=== PATIENT | female | born 1945 | race Caucasian/White ===

== ENCOUNTER → 2016-08-12 | Outpatient (CLI) | payer MEDICARE, MEDICAID ==
[~2016-08-12] MED LIST: ATENOLOL-CHLOR1 EACH PO; CARAFATE DPS1 GM PO; CELEXA DPS20 MG PO; DUONEB DPS3 ML IH; FLOVENT 110MCG12 GM IH; LEVAQUIN DPS250 MG PO; LEVOTHYROXINE112 MCG PO; NEURONTIN DPS300 MG PO; NORCO 5-325 TA1 EACH PO; PREDNISONE10 MG PO; PRILOSEC DPS20 MG PO; PROCHLORPERAZIN10 MG PO; SINEMET CR 50-1 EACH PO
== END | disposition home or self-care (01) ==
LOC: RAD.S 13:45
DX: R18.8 Other ascites (principal); R10.9 Unspecified abdominal pain; C23 Malignant neoplasm of gallbladder

== ENCOUNTER 2016-08-19 11:00 | Inpatient (IN) | payer MEDICARE ==
[~2016-08-19] VITALS: Ht 164.3 cm; Wt 127.0 kg
--- NOTE | 2016-08-20 11:08 | ER ---
ADMIT: 08/19/2016 RM/LOC: 520 [facility] MR#: [id number] 2620 [facility] [address] [place], [place] [id number] BRODY MAGDAELNO [address] [facility] [address] [place] [address] Emergency Room Report SEX: F AGE: 71 : 1945 DATE: 08/19/2016 CHIEF COMPLAINT: Weakness. HISTORY OF PRESENT ILLNESS: This is a 71-year-old white female coming over from [place] because she was found that she was getting weaker, failure to thrive, and they had worked her up a bit over there, and decided she need to come over here. She also had a D-dimer that was positive over there. 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 Cancer is unknown. Dr. Cuellar had seen her as well. The history is such as that she had been sent to [place] several weeks back for a large pleural effusion, which they tapped and then found the malignant cells. They also did an exploratory laparoscope, although, the first indication was gallbladder, but they could not remove the gallbladder, so there was a question of whether she has ovarian or gallbladder cancer. She had seen Dr. Cuellar and had, had started on chemo, but has not tolerated this well at all. PAST MEDICAL HISTORY: Significant disease is actually fairly extensive as she has a history of COPD; basal cell cancer; cholelithiasis; diabetes type 2 with polyneuropathy; history of enteritis, unknown etiology, continues to have diarrhea; Graves disease; chronic radiculopathy pain; Parkinson disease as well as history of thyrotoxicosis with diffuse goiter. MEDICATION: Refer to list. ALLERGIES: BUMEX, BENADRYL, AND LISINOPRIL, SHE HAS COUGH WITH THAT. FAMILY SOCIAL HISTORY: She lives with her family. She was a long-time smoker, but has quit for maybe 10 years or so. REVIEW OF SYSTEMS: GENERAL: Overall weakness. CARDIOVASCULAR: See history of present illness. GI: See history of present illness. : She has a history of supposedly bladder cancer, has been cystoscoped at 69 years, I do not know where that is at this time. Rest of review of systems essentially negative. PHYSICAL EXAMINATION: GENERAL: Generally weak, but responsive. VITAL SIGNS: Stable. She is afebrile. HEENT: Negative. RESPIRATORY: Breath sounds are distant. CARDIOVASCULAR: Regular rate and rhythm. ABDOMEN: Nontender. She has postop change noted. SKIN: Pallor. EXTREMITIES: She does move all. REGULATED PROGRAM MANAGER: She is somnolent and weak. Lethargic. Will wake up, will answer questions. I do not see any focal deficits at this time. ADMIT: 08/19/2016 RM/LOC: 520 [facility] MR#: [id number] [address] [place] [id number] BRODY MAGDALENO [address] [place] [address] Emergency Room Report SEX: F AGE: 71 : 1945 LABORATORY: We did do the sepsis workup on her. White count was 2.5 and hemoglobin is 9.3. Her urine was essentially clear. Her procalcitonin was negative. Her lactate was 0.6. Chemistries negative, though her potassium is slightly elevated at 5.7. Troponin is negative. INR is negative as well. Chest x-ray, she does have a pleural effusion on the right, which seems to be improved. Her creatinine though was elevated at 2 at [place] and here as well. DIAGNOSES: 1. Metastatic cancer, unknown etiology. 2. History of pleural effusion that has been cancerous cells found. 3. Weakness. 4. Renal insufficiency. 5. History of bladder cancer. 6. Chronic obstructive pulmonary disease by history. TREATMENT: At this time, she has an IV. We have not start on any antibiotics. I did speak with Dr. Ritchie. She will need to be admitted. I also spoke with Dr. Cuellar as well. CONDITION ON DISCHARGE: Serious but stable at this time. Rigo Rao MD/ min JOB #: [id number] CC: Rigo Ritchie MD, Attending Physician Rigo Ritchie MD, Family Physician
--- NOTE | 2016-08-20 16:12 | HP ---
ADMIT: 08/19/2016 RM/LOC: 520 [facility] MR#: [id number] [address] [address] VANIA MAGDALENO [address] [facility] [address] [place] [address] History and Physical SEX: F AGE: 71 : 1945 DATE OF SERVICE: CHIEF COMPLAINT: Shortness of breath. HISTORY OF PRESENT ILLNESS: Vania is a 71-year-old female, who does see Dr. Rojas in [place]. She recently was diagnosed with a pleural effusion. Had substantial amounts of fluids taken by thoracentesis as well as paracentesis. Noted to have malignancy of unknown primary. Currently seeing Dr. Thorne receiving chemotherapy, unclear of what chemo medication she just received. She did become acutely more short of breath today. She has been having some coughing, but nothing new or out of the ordinary. No changes in her sputum. Does have a history of COPD. She is evaluated in the ER with Dr. Rojas. They did obtain a D-dimer which was elevated by report, and therefore, they transferred her to [place] because they wanted to get a V/Q scan. I evaluated the patient at her bedside. She does have some tremors. She communicates quite well. She is not in extremis or anything like that and states she was getting along okay and just kind did have progressively more short of breath over the last 24 hours. Her daughter and son-in-law are at the bedside. They do live. She does live with these family members and states that she has been on approximately 4 L. She is initially placed on 2 L at rest and 4 L with ambulation after her initial diagnosis as well as her evaluation and care in [place]. Most recently, they have noticed that ever since I gave her chemotherapy she did require the addition of approximately 4 L constantly. Other than that, she is not having any orthopnea or anything like that and she is eating better now than she was and her bowels and bladder are moving without difficulty, in fact, she does have diarrhea. Recently, she was in the ER with Dr. Rojas approximately 2 days ago and was noted to be hypovolemic and did receive some IV fluids at that time. She just really never improved after that fluid resuscitation and did progressively get worse. Relating to her evaluation in the ER and subsequent transfer to [facility]. PAST MEDICAL HISTORY: 1. Her all through review of the medical records, she has chronic back pain. She has had a malignant pleural effusion. She did have substantial. 2. Diagnostic laparoscopy with biopsies. 3. History of bladder cancer. 4. Cataracts. 5. Hypertension. 6. Diabetes type 2. 7. Polyneuropathy. 8. COPD. 9. Diverticulosis. 10.Graves disease. 11.Hyperkalemia. 12.Obstructive sleep apnea. 13.Osteoarthritis. 14.Parkinson disease. 15.Chronic venous stasis. ADMIT: 08/19/2016 RM/LOC: 520 [facility] MR#: [id number] [address] [place] [id number] VANIA MAGDALENO [address] [place] [id number] History and Physical SEX: F AGE: 71 : 1945 16.History of erysipelas. 17.Hypothyroidism. MEDICATIONS: 1. Metformin 500 mg twice daily. 2. Citalopram 10 mg daily. 3. Gabapentin 600 mg twice daily. 4. Prochlorperazine every 4 hours p.r.n. 5. QVAR twice daily. 6. Omeprazole 20 mg twice daily. 7. Glimepiride 2 mg daily. 8. Levothyroxine 112 mcg daily. 9. Lortab p.r.n. 10.Atenolol/chlorthalidone twice daily. 11.Carbidopa and levodopa. 12.Flovent. 13.Dexamethasone with chemotherapy. ALLERGIES: BUMEX, LISINOPRIL, AND BENADRYL. FAMILY HISTORY: Father , had hypertension. Two brothers, sister, and father both had lung cancer. Sister and mother had heart disease. Brother, sister, and mother all had diabetes. SOCIAL HISTORY: She drinks red beers every once in a while. She does not smoke anymore. She does not do drugs. 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 REVIEW OF SYSTEMS: Complete review of systems reviewed per HPI. PHYSICAL EXAMINATION: VITAL SIGNS: Blood pressure is 123/49, pulse is 51, respiratory rate is 16, temperature is 96.7, and she is 97% on O2. GENERAL: She is alert and oriented x3, in no acute distress. HEENT: Normocephalic and atraumatic. Extraocular muscles intact. Pupils equally round and responsive to light. No nasal discharge. Mucous membranes are overall pretty moist. NECK: Supple. HEART: Regular. LUNGS: Distant bilaterally. She does have bilateral wheezes. ABDOMEN: Soft, nontender, and nondistended. EXTREMITIES: No clubbing or cyanosis. She has 1+ pedal edema. LABORATORY DATA: Urine culture is drawn and pending. Blood cultures are drawn and pending. Sodium is 141, potassium is 5.7, chloride is 104, bicarb is 33, BUN is 92, creatinine is 2.0, glucose is 122, calcium is 8.8, phosphorus 4.3, total bilirubin 0.3, total protein 7.2, albumin is 3.2, AST is 15, ALT is 9, alkaline phosphatase is 52, and Mag is 2.4. CK is 23 and CK-MB is 1.2. Troponin less than 0.015. INR is less than 1. Lactic acid is normal ADMIT: 08/19/2016 RM/LOC: 520 [facility] MR#: [id number] [address] [address] VANIA MAGDALENO [facility] [address] [address] History and Physical SEX: F AGE: 71 : 1945 at 0.6. White blood cells are 2.5; ANC is 2.1; hemoglobin is 9.3, unknown baseline; and platelets 107, unknown baseline. UA with 1+ leukocyte esterase, we will just culture her urine. Chest x-ray, she has some atelectasis versus consolidation. Procalcitonin normal at 0.25. ASSESSMENT AND PLAN: 1. Chronic obstructive pulmonary disease exacerbation. I think the patient does have history consistent with chronic obstructive pulmonary disease as well as she does have wheezing on exam. She had increased O2 requirement as well. No chest pain associated with this. She certainly could have a blood clot, however, in the setting of malignancy; I fully expect her D-dimer to be positive. She did have ultrasound of her bilateral lower extremities about a month ago. We will go ahead and repeat those just to ensure that she has not developed an acute deep venous thrombosis, which is certainly high risk due to her malignancy. We will also request a V/Q scan as well. I will put her on some aggressive pulmonary toilet. 2. Acute renal failure and hypovolemia. Her BUN is 92 and her creatinine is 2. Again, we have an unknown baseline. We do not have any previous laboratories. We will go ahead and hold her nephrotoxins at this time. We will give her some gentle IV fluids at 100 mL an hour. We will place her on some edema as well. No previous history of heart failure. Previous x-ray was read out as potentially some congestive heart failure. I do not appreciate this on chest x-ray here at [facility]. We will of course monitor her and follow up her laboratories. I am going to request a previous echocardiograms and EKGs that potentially may have with her primary care physician. 3. Type 2 diabetes mellitus. We will hold her glipizide and metformin. Place her on a supplemental scale insulin. 4. Metastatic adenocarcinoma of unknown primary. We will consult Dr. Cuellar to follow. 5. Hypothyroidism. Maintain her on her levothyroxine. 6. Hypertension. Her blood pressure is quite stable. I am going to hold her chlorthalidone and atenolol at this time as I think she is dry. ADMIT: 08/19/2016 RM/LOC: 520 [facility] MR#: [id number] 2620 [facility] [address] [place], [place] [address] VANIA MAGDALENO [address] [place] [address] History and Physical SEX: F AGE: 71 : 1945 7. Parkinson disease. We will maintain her on her Sinemet. 8. I will place her on some subcutaneous heparin for prophylaxis. 9. She is a DNR/DNI. I feel that we are ruling out DVTs and PEs very reasonable. I feel that she is most consistent with chronic obstructive pulmonary disease exacerbation. She does have some wheezing on exam. I will place her on some antibiotic, steroid, pulmonary toilet, and I will go and follow up her laboratories. I anticipate discharge in 48 to 72 hours. I discussed this plan with the patient, expressed understanding was given, had no further questions. Rigo Ritchie MD/ min JOB #: [id number] CC: Rigo Ritchie, Attending Physician Rigo Ritchie, Family Physician Omega Rojas MD
[2016-08-23] MEDS ORDERED: NEURONTIN DPS300 MG PO (12:47)
[2016-08-23] MEDS ORDERED: CELEXA DPS20 MG PO (12:47)
[2016-08-23] MEDS ORDERED: PROCHLORPERAZIN10 MG PO (12:48)
[2016-08-23] MEDS ORDERED: PRILOSEC DPS20 MG PO (12:48)
[2016-08-23] MEDS ORDERED: NORCO 5-325 TA1 EACH PO (12:48)
[2016-08-23] MEDS ORDERED: LEVOTHYROXINE112 MCG PO (12:48)
[2016-08-23] MEDS ORDERED: SINEMET CR 50-1 EACH PO (12:49)
[2016-08-23] MEDS ORDERED: CARAFATE DPS1 GM PO (12:49)
[2016-08-23] MEDS ORDERED: ATENOLOL-CHLOR1 EACH PO (12:49)
[2016-08-23] MEDS ORDERED: DUONEB DPS3 ML IH (12:50)
[2016-08-23] MEDS ORDERED: LEVAQUIN DPS250 MG PO (12:50)
[2016-08-23] MEDS ORDERED: PREDNISONE10 MG PO (12:51)
[2016-08-23] MEDS ORDERED: FLOVENT 110MCG12 GM IH (12:52)
--- NOTE | 2016-08-24 14:12 | CO ---
ADMIT: 08/19/2016 RM/LOC: 520 [facility] MR#: [id number] 2620 [facility] [address] [place] [id number] BRODY MAGDALENO [address] [address] Consultation SEX: F AGE: 71 : 1945 DATE OF CONSULTATION: 08/20/2016 ATTENDING PHYSICIAN: Rigo Ritchie CONSULTING PHYSICIAN: Radha Harris APRN TIME IN: 1050 hours. TIME-OUT: 1205 hours. REASON FOR CONSULTATION: Supportive care consultation was requested by Dr. Ritchie for discussion of goals for care. HISTORY OF PRESENT ILLNESS: Mrs. Magdaleno is a very pleasant, but unfortunate 71- year-old, female, who was recently found to have metastatic cancer with an unknown primary. She does have disease in her abdomen specifically over her gallbladder and this was found by exploratory laparoscopic, however, it was unable to be removed. There was also some question of whether or not the ovaries are involved. She also has malignant effusions in the lung. She has started chemotherapy under the direction of Dr. Thorne. However, presented to the [place] emergency room yesterday with increasing weakness. Her D-dimer was elevated, so she was brought to [place] for further evaluation. CT scan was negative as was Doppler's of the lower legs. She is currently being treated for a COPD exacerbation. She is also showing pancytopenia. Her creatinine has been elevated. At this time, the patient indicates that she does not want to pursue any further chemotherapy. Due to her complexities, supportive care consultation was requested to discuss goals for care. In terms of advanced directives, the patient is a do not resuscitate/do not intubate status. She does not have any advanced directives that are currently on file, but indicates that she wants her daughter Shyann ramachandran phone# to be her medical decision maker in the event that she cannot make medical decisions. Symptomatically, the patient denies any major complaints. Her primary source of discomfort at this time is actually heartburn. She is receiving Protonix and Maalox for this. PAST MEDICAL HISTORY: 1. Metastatic cancer, primary unknown. 2. History of bladder cancer. 3. Cataracts. 4. Hypertension. 5. Diabetes mellitus type 2. 6. Polyneuropathy. 7. COPD. 8. Diverticulosis. 9. Graves' disease. 10.Hyperkalemia. ADMIT: 08/19/2016 RM/LOC: 520 [facility] MR#: [id number] [address] [address] BRODY MAGDALENO [address] [address] Consultation SEX: F AGE: 71 : 1945 11.Obstructive sleep apnea. 12.Osteoarthritis. 13.Parkinson's disease. 14.Chronic venous stasis. ALLERGIES: THE PATIENT IS ALLERGIC TO BUMETANIDE, BENADRYL, AND LISINOPRIL. CURRENT MEDICATIONS: Please see the patient's MAR for specific routes and dosages. Her current medications are as follows. 1. Levaquin. 2. Celexa. 3. DuoNeb. 4. Synthroid. 5. Heparin. 6. NovoLog. 7. Sinemet. 8. Protonix. 9. Neurontin. 10.Glutose. 11.Glucagon. 12.D5 normal saline. 13.D50. 14.Maalox. 15.Tylenol. 16.Colace. 17.Nitrostat. 18.Asmanex. 19.Laughlin. 20.Compazine. 21.Prednisone. SOCIAL HISTORY: The patient is retired. 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 She occasionally was drinking red beer once in a while per the records. She does not use tobacco currently. She does not use illicit drugs. FAMILY HISTORY: Her father is and had hypertension. She had brothers, sister, and father with lung cancer. Her sister and mother had heart disease. Her brother, sister, and mother all had diabetes. FUNCTIONAL REVIEW: It sounds like up until a month ago, the patient was living in her house independently. Over the past couple weeks, she has been living with her daughter and is requiring assistance with ADLs. She could ambulate short distances. Her intake was reduced. Her palliative performance scale just prior to admission was a 50% to 60%. Currently, she is in bed or the chair. She can ambulate short distances with two assist. She is requiring mainly assistance. Her current palliative performance scale is 40% to 50%. ADMIT: 08/19/2016 RM/LOC: 520 [facility] MR#: [id number] [address] [address] [place] [address] Consultation SEX: F AGE: 71 : 1945 REVIEW OF SYSTEMS: A 10-point review of systems was completed and other than those pertinent positives and negatives mentioned the HPI, it is negative. PHYSICAL EXAMINATION: GENERAL: The patient is examined in the chair. She is in no acute distress. VITAL SIGNS: Temperature 98.0, pulse 56, respirations 18, blood pressure 139/90, oxygen 92% on 3 L per nasal cannula. HEENT: Head is normocephalic. Pupils are 3 mm bilaterally and brisk. Oral mucosa pink and moist with fair dentition. NECK: Supple. RESPIRATORY: Respirations are equal, nonlabored at rest. LUNGS: Diminished in the bases bilaterally. CARDIOVASCULAR: Rate and rhythm regular without murmurs, rubs, or gallops. She has 2+ bilateral lower extremity edema noted. GASTROINTESTINAL: Soft, nontender. She is obese. Bowel sounds are positive. MUSCULOSKELETAL: Generalized weakness. No obvious joint deformities. INTEGUMENTARY: Skin turgor is fair. Her skin is fragile. NEUROLOGIC: Alert and oriented x3. She does have a resting tremor. PSYCHIATRIC: Calm and cooperative. No agitation or delirium noted. DIAGNOSTIC DATA: Sodium 141, potassium 6.0, BUN 82, creatinine 1.8, total protein 7.2, albumin 3.2. WBC is 1.2, hemoglobin 8.4, hematocrit 29.7, and platelets are 74. IMPRESSION: 1. Physical debility. 2. Fatigue. 3. Malaise. 4. Gastroesophageal reflux disease. 5. Difficulty coping. 6. Chronic obstructive pulmonary disease with acute exacerbation. 7. Parkinson's disease. 8. Acute renal failure. 9. Pancytopenia. 10.Diabetes mellitus type 2. 11.Palliative care. 12.The patient is a DNR/DNI. PLAN OF TREATMENT: 1. I was able to meet with the patient initially on her own and then later with the patient's daughter, Shyann present at the bedside. We reviewed her overall status and goals for the time ahead. She reports that her quality of life has been very poor since receiving chemotherapy. She states that at this time she would like to discontinue chemotherapy and focus on comfort for the remainder of her days. She states that she would "like to have a good summer." We did discuss the hospice philosophy and benefit at length. The patient is familiar with hospice ADMIT: 08/19/2016 RM/LOC: 520 [facility] MR#: [id number] [address] [place] [id number] BRODY MAGDALENO [address] [place] [address] Consultation SEX: F AGE: 71 : 1945 from her time working in a long-term care facility. Both the patient and her daughter agree with the goal of discontinuing chemotherapy and proceeding with hospice care. There are logistical concerns related to this whether or not the patient will go home or will need to go to a facility for hospice care. They are aware that hospice at a facility does require private paper room and board. We will have Social Work combined and discuss this with them and figure out a game plan in terms of discharge with hospice. 2. The patient does confirm that she wishes to be a do not resuscitate/do not intubate status and this is accurate on the chart. 3. We did discuss advanced directives very briefly and the patient directs that she would like her daughter, Shyann to be her healthcare power-of- insurance attorney. I have asked that the supportive care nurse visit with the family and patient this afternoon to complete healthcare power-of- insurance attorney paperwork. We would like to thank Dr. Ritchie for the invitation to participate in this patient's care. Total consultation time was 75 minutes from 1050 hours to 1205 hours with 30 minutes from 1115 hours to 1145 hours spent [id number] with the patient and family discussing goals for care and providing counseling and support. Dr. Ritchie was updated on the plan of care as was nursing. Dr. Ritchie states that he will contact Dr. Thorne regarding the patient's plans. A message was left for Social Work to assist with hospice setup. Radha Harris APRN/ min JOB #: [id number] CC: Rigo Ritchie, Attending Physician Rigo Ritchie, Family Physician
--- NOTE | 2016-08-29 21:46 | DS ---
ADMIT: 08/19/2016 RM/LOC: 520 [facility] MR#: [id number] [address] [id number] VANIA MAGDALENO [address] [address] Discharge Summary SEX: F AGE: 71 : 1945 ADMISSION DATE: 08/19/2016 DISCHARGE DATE: 08/22/2016 DIAGNOSES: 1. COPD (chronic obstructive pulmonary disease) exacerbation. 2. Hypoxemia. 3. Renal insufficiency with a creatinine of 2 on admit. 4. Diabetes. 5. Metastatic adenocarcinoma, suspect biliary or pancreatic origin. 6. Dehydration. 7. Pancytopenia due to chemo. 8. Weakness. 9. Hyperkalemia-resolved. 10.DNR/DNI (do not resuscitate/do not intubate). 11.Atrial fibrillation/flutter. 12.Gastroesophageal reflux disease. PROCEDURES: 1. Bilateral lower extremity venous Doppler, 08/19/2016. 2. V/Q scan 08/20/2016. CONSULTS: 1. Oncology. 2. Supportive care. REASON FOR ADMISSION: Shortness of breath. See dictated H AND p. LABORATORY AND X-RAY DATA: Sodium 144, potassium on admission 5.7 up to 6, final value 4.8, chloride 105, CO2 35, BUN 92 down to 66, glucose variable, creatinine 2 down to 1.7, calcium 8.9, phosphorus 4.3, total bilirubin 0.3, total protein 7.2, albumin 3.2, alkaline phosphatase 52, AST 15, ALT 9, magnesium 2.2. GFR is 30. CK 23 with an MB of 1.2. Troponin less than 0.015. ProBNP 19798. Pro-time 9.7, INR less than 1, PTT 25. Blood sugars were variable, see chart. White count 2.5 down to 1.2, final value of 6.7, hemoglobin on admission 9.3 down to 8.5, hematocrit 20.9, platelet count 107 down to 71. Procalcitonin 0.25, lactic acid 0.6. UA was unremarkable. Chest x-ray with some small effusions, right greater than left and atelectasis or consolidation. Ultrasound of the lower extremity was negative bilaterally. V/Q scan was low probability. COURSE IN HOSPITAL: Vania was admitted to the hospital with hypoxemia from [place]. V/Q scan was performed and she was placed on a burst of prednisone. She has been recently diagnosed with this cancer of unknown primary. Came in feeling awful. This cleared up on some IV fluids at 150 an hour. Clinical assessment of dehydration. Her counts were noted to be low so she was given GRANIX at 480 mcg daily for a few days. Her white count responded nicely. She had pretty poor performance status when she came in and was indicating that she probably did not want to have any further chemo because she felt so bad. Supportive Care was asked to see her for possible discussion of hospice. ADMIT: 08/19/2016 RM/LOC: 520 [facility] MR#: [id number] [address] [place] [id number] VANIA MAGDALENO E [address] [address] Discharge Summary SEX: F AGE: 71 : 1945 Her white count began to elevate and she did start to feel a little bit better. After discussing things with her family and Dr. Thorne she decided she would give it another round of chemo after some adjustment in dose. Hoping to at least buy her some quality time. Things are so new at this point in terms of her diagnosis I do not think she really knows what to do. The only other factor that was kind of significant is that she had terrible reflux symptoms. She had already been on a proton pump inhibitor twice daily. We discussed using more of a Carafate slurry to see if that would help her symptoms. She used it the day prior to discharge and felt that it was helping. DISCHARGE MEDICATIONS: Discharge medications include: 1. O2 as at home. 2. Carafate 1 g a.c. and every night made into a slurry. 3. Celexa 10 mg daily. 4. Prednisone burst and taper, here was 30 mg daily for 4 days, 20 mg for 4 days, then 10 mg for 4 days and then stop. 5. Need to assess if she is on a Decadron dose and taper and if so to go with her Decadron. 6. Levaquin 250 daily for seven days. 7. Neurontin 600 b.i.d. 8. Omeprazole 20 b.i.d. with the hopes of decreasing that in the future. 9. Sinemet CR 5/200 b.i.d. 10.Synthroid 0.112 daily. 11.QVAR one puff b.i.d. 12.DuoNeb q.4h while awake and p.r.n. 13.Compazine 10 q.4h p.r.n. 14.Hydrocodone 5/325, one every 6 hours p.r.n. 15.Atenolol 50/25, one daily (not b.i.d.). DISCHARGE INSTRUCTIONS: She is to see Dr. Thorne that later in the week when she is post chemo again, on . She will ask when her counts are okay to follow up with Dr. Rojas. Overall prognosis is fair. Time spent is 45 minutes. Ana Franks MD/ vdg JOB #: [id number] CC: Rigo Ritchie MD, Attending Physician Rigo Ritchie MD, Family Physician MD Omega Morillo MD Chelsea A Enninga, APRN
== END 2016-08-22 13:50 | disposition home health service (06) | DRG 682 ==
LOC: ER 11:00 → 5MS 15:30
PROVIDERS: ADMIT Internal Medicine
DX: N17.9 Acute kidney failure, unspecified (principal); D61.810 Antineoplastic chemotherapy induced pancytopenia; J91.0 Malignant pleural effusion; C79.89 Secondary malignant neoplasm of other specified sites; E11.42 Type 2 diabetes mellitus with diabetic polyneuropathy; E86.0 Dehydration; C80.1 Malignant (primary) neoplasm, unspecified; I10 Essential (primary) hypertension; J44.1 Chronic obstructive pulmonary disease with (acute) exacerbation; E87.5 Hyperkalemia; G20 Parkinson's disease; M54.9 Dorsalgia, unspecified; M19.90 Unspecified osteoarthritis, unspecified site; G47.33 Obstructive sleep apnea (adult) (pediatric); E03.9 Hypothyroidism, unspecified; K57.90 Diverticulosis of intestine, part unspecified, without perforation or abscess without bleeding; K80.20 Calculus of gallbladder without cholecystitis without obstruction; Z87.891 Personal history of nicotine dependence; Z85.828 Personal history of other malignant neoplasm of skin; Z85.51 Personal history of malignant neoplasm of bladder; Z79.84 Long term (current) use of oral hypoglycemic drugs; Z66 Do not resuscitate

== ENCOUNTER → 2016-09-03 | Outpatient (CLI) | payer MEDICARE, MEDICAID | END | disposition home or self-care (01) | LOC: RAD.S 12:46 → EDSTATUS 13:00 → RAD.S 13:00 | PROC: 0W993ZZ Drainage of Right Pleural Cavity, Percutaneous Approach (ICD-10-PCS; principal; 2016-09-03) | DX: J90 Pleural effusion, not elsewhere classified (principal) ==